=== PATIENT | female | born 1945 | race Caucasian/White ===

== ENCOUNTER 2017-03-17 08:00 | Outpatient (CLI) | payer MEDICARE | END 2017-03-17 08:01 | disposition home or self-care (01) | LOC: BICCT 08:00 | PROVIDERS: ATTEND Nurse Practitioner Family | DX: R25.1 Tremor, unspecified (principal) | CPT/HCPCS: 70450 ==

== ENCOUNTER 2018-06-24 12:47 | Outpatient (CLI) | payer MEDICARE ==
[~2018-06-24 12:47] MED LIST: Gadobenate Dimeglumine 529 MG/1 ML (20ML VIAL) ONE
--- NOTE | 2018-06-24 16:16 | MRI ---
MRI BRAIN WITH AND WITHOUT IV CONTRAST: Date: 06/24/18 HISTORY: Essential tremor, memory loss. COMPARISON: 07/19/10. FINDINGS: No restricted diffusion is seen. There is no evidence of infarct, hemorrhage, mass, midline shift, or abnormal extra-axial fluid collections. The ventricular size is appropriate and the basilar cisterns are patent. No abnormal postcontrast enhancement is seen. The visualized paranasal sinuses and masto id air cells are well aerated. IMPRESSION: No significant intracranial abnormalities are seen. POS: [facility]
== END 2018-06-24 12:48 | disposition home or self-care (01) ==
LOC: BICMRI 12:47
PROVIDERS: ATTEND Psychiatry & Neurology Neurology
DX: G25.0 Essential tremor (principal)
CPT/HCPCS: 70553; 82565

== ENCOUNTER 2021-10-14 14:29 | Outpatient (CLI) | payer MEDICARE | END 2021-10-14 14:30 | disposition home or self-care (01) | LOC: RAD-FRANK 14:29 | PROVIDERS: ATTEND Nurse Practitioner Family | DX: M25.572 Pain in left ankle and joints of left foot (principal); S93.402A Sprain of unspecified ligament of left ankle, initial encounter ==

== ENCOUNTER 2023-08-24 09:02 | Outpatient (CLI) | payer MEDICARE | END 2023-08-24 09:03 | disposition home or self-care (01) | LOC: BICRAD 09:02 | PROVIDERS: ATTEND Orthopaedic Surgery | DX: S82.64XA Nondisplaced fracture of lateral malleolus of right fibula, initial encounter for closed fracture (principal); S92.344A Nondisplaced fracture of fourth metatarsal bone, right foot, initial encounter for closed fracture ==

== ENCOUNTER 2024-02-03 15:12 | Emergency (ER) | payer OTHER, MEDICARE | END 2024-02-04 17:06 | disposition home or self-care (01) | LOC: ERS 15:12 | DX: I10 Essential (primary) hypertension (principal) | CPT/HCPCS: 99283 ==